=== PATIENT | female | born 1960 | race Caucasian/White ===

== ENCOUNTER 2018-03-22 10:40 | Emergency (ER) | payer OTHER ==
--- NOTE | 2018-03-22 11:42 | EDPHY ---
H & P Stated Complaint: lightheaded,confusion, and fatigue after hitting head on Friday Time Seen by Provider: 03/22/18 10:45 HPI/ROS: 57 yo F presents c/o slipped out of a bhatia at restaurant and hit the back of her head on the floor, afterward she felt dazed, confused She initially applied ice to the back of her head and ultimately stayed at the restaurant, ate dinner and then went home. She did not seek care that day. Today she complains of ongoing headache, feeling her thinking is cloudy, some dizziness, and primarily severe fatigue. No nause or vomiting. She denies neck pain at present. No numbness or tingling in extermeities. Review of systems As per HPI General no fever no chills positive fatigue HEENT no eye pain no eye discharge. No eye redness, no sore throat Respiratory no cough, no shortness of breath Cardiac no chest pain, no peripheral edema GI no abdominal pain, no diarrhea, no constipation, no nausea, no vomiting no flank pain, no hematuria, no dysuria Musculoskeletal no myalgias, no joint pain Heme no easy bruising, no easy bleeding Endo no polyuria, no polydipsia Skin no rashes, no pruritus Neuro no syncope, positive dizziness, positive headaches Psych is no suicidal ideation, no homicidal ideation Source: Patient Exam Limitations: No limitations - Personal History Current Tetanus Diphtheria and Acellular Pertussis (TDAP): Yes Tetanus Vaccine Date: unsure - Medical/Surgical History Hx Asthma: No Hx Chronic Respiratory Disease: No Hx Diabetes: No Hx Cardiac Disease: No Hx Renal Disease: No Hx Cirrhosis: No Hx Alcoholism: No Hx HIV/AIDS: No Hx Splenectomy or Spleen Trauma: No Other PMH: melanoma,finger surgery - Family History Significant Family History: No pertinent family hx - Social History Smoking Status: Never smoked Alcohol Use: None Drug Use: None - Physical Exam Exam: 57 yo F alert and oriented in nad, easily tearful during history HEENT atraumatic normocephalic, extraocular muscles intact, anicteric Oropharynx negative for erythema negative exudate, tolerating her own secretions Neck supple no meningismus, no midline tenderness Lungs clear to auscultation bilaterally Heart regular rate and rhythm without murmur rub or gallop Abdomen nondistended normoactive bowel sounds soft nontender Back no CVA tenderness, no step-offs, no spinal tenderness Extremities no cyanosis clubbing or edema Neuro alert and oriented, no focal deficits, gait intact, motor 5/5 bilat Constitutional: Initial Vital Signs Temperature (C) 36.9 C 03/22/18 10:55 Heart Rate 80 03/22/18 10:55 Respiratory Rate 16 03/22/18 10:55 Blood Pressure 137/91 H 03/22/18 10:55 O2 Sat (%) 97 03/22/18 10:55 O2 Delivery Mode Room Air Allergies/Adverse Reactions: Sulfa (Sulfonamide Antibiotics) Allergy (Verified 03/22/18 10:53) Medical Decision Making - Diagnostics Imaging Results: Imaging Impressions Head CT 03/22/18 11:40 Impression: Negative. No acute fracture or evidence of acute intracranial injury. Findings discussed with emergency department physician, Roselyn Baker MD on March 22, 2018 at 12:15 p.m. ED Course/Re-evaluation: Pt seen and evaluated for recent head injury ct scan head neg Imp concussion Plan concussion intructions follow up pcp Differential Diagnosis: Differential diagnosis considered but not limited to: Her head contusion, scalp hematoma, concussion, intracranial bleed Departure - Departure Disposition: Home, Routine, Self-Care Clinical Impression: Concussion Condition: Good Instructions: Concussion (ED) Referrals: Flor Ellis MD [Primary Care Provider] - As per Instructions
[2018-03-22 13:25] VITALS: BP 132/88
== END 2018-03-22 13:05 | disposition home or self-care (01) ==
LOC: CED 10:40
DX: S06.0X9A Concussion with loss of consciousness of unspecified duration, initial encounter (principal); W22.8XXA Striking against or struck by other objects, initial encounter; Y92.511 Restaurant or cafe as the place of occurrence of the external cause; Y93.9 Activity, unspecified; Y99.0 Civilian activity done for income or pay
CPT/HCPCS: 70450-PO

== ENCOUNTER → 2018-03-26 | Outpatient (CLI) | payer OTHER | LOC: CIMAGING 12:07 | PROVIDERS: ATTEND Family Medicine | DX: M43.12 Spondylolisthesis, cervical region (principal); M48.02 Spinal stenosis, cervical region | CPT/HCPCS: 72052-PO ==

== ENCOUNTER → 2018-03-27 | Outpatient (CLI) | payer OTHER | LOC: CIMAGING 08:25 | PROVIDERS: ATTEND Family Medicine | DX: Z12.31 Encounter for screening mammogram for malignant neoplasm of breast (principal) ==